=== PATIENT | male | born 1970 ===

== ENCOUNTER 2024-06-25 12:06 | Outpatient (REF) | payer BC, SELFPAY ==
[2024-06-25 14:29] LABS: HCT 48.3 % (40.0-50.0); HGB 16.3 g/dL (13.5-17.5); MCH 29.6 pg (27.0-33.0); MCHC 33.7 % (32.0-36.0); MCV 88 fL (80-95); MPV 12.2 fL (8.0-11.0); Platelet Count 182 10^3/uL (130-400); RBC 5.51 10^6/uL (4.36-5.78); RDW 12.5 % (11.8-14.1); RDW-SD 40.6 fL; WBC 6.21 10^3/uL (4.4-10.8)
[2024-06-25 14:52] LABS: ALT 63 U/L (16-63); AST 39 U/L (15-37); Albumin 4.5 g/dL (3.4-5.0); Alkaline Phosphatase 100 U/L (46-116); Anion Gap 6.2 mmol/L (3-11); BUN 19 mg/dL (7-18); Bilirubin, Total 0.9 mg/dL (0.2-1.0); CO2 31.8 mmol/L (21.0-32.0); CREATININE 1.3 mg/dL (0.70-1.30); Calcium 9.8 mg/dL (8.5-10.1); Calculated LDL 186 mg/dL (<100); Chloride 103 mmol/L (98-107); Cholesterol 268 mg/dL (<200); Estimated GFR 65.69 (mL/min/1.73m2); Glucose 108 mg/dL (74-106); HDL Cholesterol 61 mg/dL (>or=40); Potassium 4.6 mmol/L (3.5-5.1); Sodium 141 mmol/L (136-145); Triglyceride 109 mg/dL (<150)
[2024-06-25 15:02] LABS: Hemoglobin A1C 6.2 % (<5.7)
== END 2024-06-25 12:07 | disposition home or self-care (01) ==
LOC: NCHCN 12:06
PROVIDERS: PCP Physician Assistant; Visit Provider Physician Assistant
DX: Z13.220 Encounter for screening for lipoid disorders (principal); E66.01 Morbid (severe) obesity due to excess calories
CPT/HCPCS: 80053; 80061; 85027; 83036

== ENCOUNTER 2025-02-23 10:40 | Outpatient (REF) | payer BC, SELFPAY ==
[2025-02-23 16:26] LABS: Abs Immature Grans 0.02 10^3/uL (0.0-0.06); HCT 47.1 % (40.0-50.0); HGB 15.6 g/dL (13.5-17.5); Immature Grans % 0.4 %; MCH 29.5 pg (27.0-33.0); MCHC 33.1 % (32.0-36.0); MCV 89 fL (80-95); RBC 5.29 10^6/uL (4.36-5.78); RDW 12.8 % (11.8-14.1); RDW-SD 41.8 fL; WBC 5.70 10^3/uL (4.4-10.8)
[2025-02-23 17:09] LABS: ALT 86 U/L (10-49); AST 48 U/L (<34); Albumin 4.6 g/dL (3.4-5.0); Alkaline Phosphatase 96 U/L (46-116); Anion Gap 10 mmol/L (3-11); BUN 14 mg/dL (9-23); Bilirubin, Total 0.50 mg/dL (0.2-1.2); CO2 26.0 mmol/L (20.0-31.0); Calcium 9.9 mg/dL (8.3-10.6); Chloride 103 mmol/L (98-107); Glucose 107 mg/dL (74-106); Potassium 4.3 mmol/L (3.5-5.1); Sodium 139 mmol/L (136-145); Total Protein 8.1 g/dL (5.7-8.2)
[2025-02-23 17:11] LABS: RBC Morphology Normal
[2025-02-23 18:18] LABS: Microalb ug/mg Crea 16.2 ug/mg Cr
== END 2025-02-23 10:41 | disposition home or self-care (01) ==
LOC: NCHCN 10:40
PROVIDERS: PCP Physician Assistant; Visit Provider Physician Assistant
DX: N64.4 Mastodynia (principal); I10 Essential (primary) hypertension
CPT/HCPCS: 80053; 82043; 82570; 85025